=== PATIENT | male | born 1965 | race Caucasian/White ===

== ENCOUNTER 2017-11-22 17:32 | Emergency (ER) | payer MEDICAID ==
[~2017-11-22] VITALS: Ht 185.4 cm; Wt 133.0 kg
[2017-11-22 17:47] VITALS: BP 139/84
[2017-11-22] MEDS ORDERED: ALBUTEROL/IPRATROPIUM 2.5MG/0.5MG, 3 ML NPPB ONE (18:00)
[2017-11-22] MEDS ORDERED: ALBUTEROL/IPRATROPIUM 2.5MG/0.5MG, 3 ML ONE (18:09)
== END 2017-11-22 19:03 | disposition home or self-care (01) ==
LOC: ED 18:57
DX: J98.01 Acute bronchospasm (principal); J44.9 Chronic obstructive pulmonary disease, unspecified; Z87.891 Personal history of nicotine dependence
CPT/HCPCS: 71046; 94640; 99284; J7512; J7620

== ENCOUNTER 2017-12-04 12:42 | Emergency (ER) | payer MEDICAID ==
[~2017-12-04] VITALS: Ht 185.4 cm; Wt 132.0 kg
[2017-12-04 12:57] VITALS: BP 117/79
== END 2017-12-04 14:11 | disposition home or self-care (01) ==
LOC: ED 14:05
DX: S80.12XA Contusion of left lower leg, initial encounter (principal); S40.022A Contusion of left upper arm, initial encounter; J44.9 Chronic obstructive pulmonary disease, unspecified; X58.XXXA Exposure to other specified factors, initial encounter; Y93.89 Activity, other specified; Y92.69 Other specified industrial and construction area as the place of occurrence of the external cause; Y99.8 Other external cause status
CPT/HCPCS: 99284